=== PATIENT | female | born 1950 ===

== ENCOUNTER 2025-06-11 11:30 | Outpatient (AMB) | payer MEDICARE, SELFPAY | END 2025-06-11 14:35 | disposition home or self-care (01) | LOC: HO.HMGAL 11:30 | PROVIDERS: PCP Internal Medicine Endocrinology, Diabetes & Metabolism; Visit Provider Registered Nurse Emergency | DX: J30.89 Other allergic rhinitis (principal) | CPT/HCPCS: 95117; 95165 ==

== ENCOUNTER 2025-07-01 13:45 | Outpatient (AMB) | payer MEDICARE, SELFPAY ==
--- OUTSIDE RECORDS SUMMARY | 2025-07-01 16:51 | XMS_ITS | Continuity of Care Document ---
Author Organization [facility] [address] [place] [address] Phone [phone] Care Team Providers Care Elementary Principal Name Role Phone Sameer Hart M.D. Care Team Information Re ceiver [phone] Problems Active Problems Provider Date Hyperlipidemia Sameer Hart M.D. Onset: 0 07/19/2022 Essential hypertension Sameer Hart M.D. O nset: 07/19/2022 Obstructive sleep apnea syndrome Sameer garsia M.D. Onset: 07/19/2022 Non-alcoholic fatty liver Bobbi Oro Onset: 07/19/2022 Type 2 diabetes mellitus Sameer Hart M.D. Onset: 07/19/2022 Dependence on continuous pos itive airway pressure ventilation Sameer Hart M.D. Onset: 07/19/2022 Fatigue Sameer Hart M.D. Onset: 0 05/28/2023 Gastroesophageal reflux disease Sameer bryan M.D. Onset: 08/29/2023 Osteoarthritis Sameer Hart M.D. Onset: 0 06/27/2024 Social History Type Date Description Comments Sex Female Sex Unknown Tobacco Use Start: Unknown End: Unknown Quit 50 years ago Smoking Status Reviewed: 05/26/25 Quit 50 year s ago ETOH Use Occasionally consumes alcoho l Allergies and adverse reactions Active Allergies Criticality Reaction Severity Comments Date Jardiance Unable to assess criticality 07/19/2022 Sulfamethoxazole Unable to assess criticality 07/19/2022 Cipro Unable to assess criticality 07/19/2022 Medications Active Medications SIG Qnty Indications Order ing Provider Date [id number] Capsules Take 3 To 5 Capsules By Mouth Every Evening as Needed For Restless Leg Syndrome 150caps Sameer Hart M.D. 01/19/2025 Pravastatin Xwhota15fy Tablets Take 1 Tablet By Mouth AT Supper Sameer Hart M.D. 10/28/2024 Vlcajuvs5vk/0.5ML Solution Auto-Inject 1 injection every week as directed 2ml Sameer Hart M.D. 06/27/2024 Onetouch VerioStrips use 1 strip to check glucose 2 times daily dx: e11.9 200units E11.9 Marley Chung M.D. 12/20/2023 Doxepin DUZ38xd Capsules 1 tablets by mouth at bedtime 180caps Sameer Hart M.D. 04/09/2023 Fblah10yk Tablets 1 by mouth every day 90tabs Sameer Hart M.D. 07/19/2022 Vitamin D (Cholecalciferol)50m cg (1999 Ut) Capsules 1 by mouth every day Sameer Hart M.D. 07/19/2022 Restasis0.05% Emulsion Sameer Hart M.D. 07/19/2022 Meloxicam7.5mg Tablets Take 1 Tablet By Mouth Daily Aníbal Bean, Magnesium Extra Raunkruj055sx Capsules take one daily Unknown Enalapril Minvghz41eu Tablets Take 1 Tablet Daily (May Cause Dizziness) 90tabs Sameer Hart M.D. Labetalol TXB654qm Tablets Take One And One-Half Tablets Twice A Day 180tabs Sameer Hart M.D. Sertraline YGX13pm Tablets Take 1 Tablet Daily 90tabs Sameer Hart M.D. Mnyxpnfjbi32st Capsules DR Take 1 Capsule By Mouth Every Other Day 45caps Sameer Hart M.D. History Medications Mounjaro7.5mg/0.5ML Solution Auto-Inject 1 injection every week as directed kayl Sameer Hart M.D. 11/03/2024 - 12/11/2024 Vqpuxgkz473-80ra Tablets 1 tablet by mouth every day 90tabs Sameer aHrt M.D. 10/28/2024 - 05/26/2025 Pravastatin Cbvczm55sb Tablets Take 1 Tablet By Mouth AT Supper 90tabs Sameer Hart M.D. 08/22/2024 - 10/28/2024 Vital Signs Date Vital Result Comment 05/26/2025 2:28pm BP Systolic 150 mmHg BP Diastolic 70 mmHg Heart Rate 76 /min Height 65 inches 5'5 Weight 204.12 lb BMI (Body Mass Index) 34.0 kg/m2 Results Test Acquired Date Facility Test Result H/L Range Note Lipid Panel 06/04/2025 [facility] Cholesterol, Total 183 mg/dL 100-199 Triglycerides 167 mg/dL High 0-149 HDL Cholesterol 46 mg/dL >39 VLDL Cholesterol Tesfaye 29 mg/dL 5-40 LDL Chol Calc (Nih) 108 mg/dL High 0-99 LDL Calc Comment: TNP Urinalysis, Complete 06/04/2025 [facility] Specific [place] 1.007 1.005-1.03 0 pH 6.0 5.0-7.5 Urine-Color Yellow Yellow Appearance Clear Clear WBC Esterase Trace Abnormal Negative Protein Negative Negative/T race Glucose Negative Negative Ketones Negative Negative Occult Blood Negative Negative Bilirubin Negative Negative Urobilinogen,Se mi-Qn 0.2 mg/dL 0.2-1.0 Nitrite, Urine Negative Negative Microscopic Examination See below: 1 Microscopic Examination TNP WBC 0-5 /hpf 0 - 5 RBC None seen /hpf 0 - 2 Epithelial Cells (non renal) 0-10 /hpf 0 - 10 Epithelial Cells (renal) TNP Casts None seen /lpf None seen Cast Type TNP Crystals TNP Crystal Type TNP Mucus Threads TNP Bacteria None seen None seen/Few Yeast TNP Trichomonas TNP Comment TNP CBC With Differential/Pl atelet 06/04/2025 [facility] WBC 7.8 x10E3/uL 3.4-10.8 RBC 4.30 x10E6/uL 3.77-5.28 Hemoglobin 12.8 g/dL 11.1-15.9 Hematocrit 38.1 % 34.0-46.6 MCV 89 fL 79-97 MCH 29.8 pg 26.6-33.0 MCHC 33.6 g/dL 31.5-35.7 RDW 13.0 % 11.7-15.4 Platelets 374 x10E3/uL 150-450 Neutrophils 58 % Not Estab. Lymphs 32 % Not Estab. Monocytes 7 % Not Estab. Eos 2 % Not Estab. Basos 1 % Not Estab. Immature Cells TNP Neutrophils (Absolute) 4.6 x10E3/uL 1.4-7.0 Lymphs (Absolute) 2.5 x10E3/uL 0.7-3.1 Monocytes(Absol nome) 0.5 x10E3/uL 0.1-0.9 Eos (Absolute) 0.2 x10E3/uL 0.0-0.4 Baso (Absolute) 0.0 x10E3/uL 0.0-0.2 Immature Granulocytes 0 % Not Estab. Immature Grans (Abs) 0.0 x10E3/uL 0.0-0.1 NRBC TNP Hematology Comments: TNP TSH Rfx on Abnormal to Free T4 06/04/2025 [facility] TSH Rfx on Abnormal to Free T4 1.380 uIU/mL 0.450-4.50 0 Albumin/Creatin ine Ratio, Random Urine 06/04/2025 [facility] Creatinine, Urine 27.5 mg/dL Not Estab. Albumin, Urine <3.0 ug/mL Not Es tab. Alb/Creat Ratio <11 mg/gcreat 0-29 2 Comp. Metabolic Panel (14) 06/04/2025 [facility] Glucose 92 mg/dL 70-99 BUN 13 mg/dL 8-27 Creatinine 0.63 mg/dL 0.57-1.00 eGFR 92 mL/min/1.7 3 >59 BUN/Creatinine Ratio 21 12-28 Sodium 135 mmol/L 134-144 Potassium 5.0 mmol/L 3.5-5.2 Chloride 99 mmol/L 96-106 Carbon Dioxide, Total 19 mmol/L Low 20-29 Calcium 9.6 mg/dL 8.7-10.3 Protein, Total 7.0 g/dL 6.0-8.5 Albumin 4.4 g/dL 3.8-4.8 Globulin, Total 2.6 g/dL 1.5-4.5 Bilirubin, Total 0.3 mg/dL 0.0-1.2 Alkaline Phosphatase 70 IU/L 44-121 Ast (Sgot) 19 IU/L 0-40 Alt (SGPT) 18 IU/L 0-32 Hemoglobin A1c 05/26/2025 Inhouse Hemoglobin A1c 5.8% Glucose Fingerstick 05/26/2025 Inhouse Glucose Fingerstick 91 Hemoglobin A1c 10/28/2024 Inhouse Hemoglobin A1c 6.1% Glucose Fingerstick 10/28/2024 Inhouse Glucose Fingerstick 93 Glucose Fingerstick 06/27/2024 Inhouse Glucose Fingerstick 101 Urinalysis, Complete 05/29/2024 [facility] Specific [place] 1.012 1.005-1.03 0 pH 6.5 5.0-7.5 Urine-Color Yellow Yellow Appearance Clear Clear WBC Esterase Negative Negative Protein Negative Negative/T race Glucose Negative Negative Ketones Negative Negative Occult Blood Negative Negative Bilirubin Negative Negative Urobilinogen,Se mi-Qn 0.2 mg/dL 0.2-1.0 Nitrite, Urine Negative Negative Microscopic Examination See Comment: 3 Microscopic Examination See below: 4 WBC None seen /hpf 0 - 5 RBC None seen /hpf 0 - 2 Epithelial Cells (non renal) 0-10 /hpf 0 - 10 Epithelial Cells (renal) TNP Casts None seen /lpf None seen Cast Type TNP Crystals TNP Crystal Type TNP Mucus Threads TNP Bacteria None seen None seen/Few Yeast TNP Trichomonas TNP Comment TNP Albumin/Creatin ine Ratio, Random Urine 05/29/2024 [facility] Creatinine, Urine 35.2 mg/dL Not Estab. Albumin, Urine 3.7 ug/mL Not Est ab. Alb/Creat Ratio 11 mg/gcreat 0-29 5 Magnesium 05/28/2024 [facility] Magnesium 1.8 mg/dL 1.6-2.3 PTH, Intact 05/28/2024 [facility] PTH, Intact 25 pg/mL 15-65 Vitamin D, 25-Hydroxy 05/28/2024 [facility] Vitamin D, 25-Hydroxy 26.0 ng/mL Low 30.0-100.0 6 Hemoglobin A1c 05/28/2024 [facility] Hemoglobin A1c 6.2 % High 4.8-5.6 7 Lipid Panel 05/28/2024 [facility] Cholesterol, Total 195 mg/dL 100-199 Triglycerides 304 mg/dL High 0-149 HDL Cholesterol 42 mg/dL >39 VLDL Cholesterol Tesfaye 52 mg/dL High 5-40 LDL Chol Calc (Nih) 101 mg/dL High 0-99 LDL Calc Comment: TNP Comp. Metabolic Panel (14) 05/28/2024 [facility] Glucose 92 mg/dL 70-99 BUN 14 mg/dL 8-27 Creatinine 0.69 mg/dL 0.57-1.00 eGFR 90 mL/min/1.7 3 >59 BUN/Creatinine Ratio 20 12-28 Sodium 138 mmol/L 134-144 Potassium 4.5 mmol/L 3.5-5.2 Chloride 99 mmol/L 96-106 Carbon Dioxide, Total 20 mmol/L 20-29 Calcium 9.7 mg/dL 8.7-10.3 Protein, Total 7.4 g/dL 6.0-8.5 Albumin 4.6 g/dL 3.8-4.8 Globulin, Total 2.8 g/dL 1.5-4.5 Bilirubin, Total 0.3 mg/dL 0.0-1.2 Alkaline Phosphatase 69 IU/L 44-121 Ast (Sgot) 19 IU/L 0-40 Alt (SGPT) 16 IU/L 0-32 TSH+Free T4 05/28/2024 [facility] TSH 2.080 uIU/mL 0.450-4.50 0 T4,Free(Direct) 1.07 ng/dL 0.82- 1.77 Hemoglobin A1c 03/21/2024 Inhouse Hemoglobin A1c 5.9% Glucose Fingerstick 03/21/2024 Inhouse Glucose Fingerstick 81 Hemoglobin A1c 12/20/2023 Inhouse Hemoglobin A1c 5.8% Glucose Fingerstick 12/20/2023 Inhouse Glucose Fingerstick 114 Hemoglobin A1c 08/29/2023 Inhouse Hemoglobin A1c 6.2% Glucose Fingerstick 08/29/2023 Inhouse Glucose Fingerstick 135 Glucose Fingerstick 05/28/2023 Inhouse Glucose Fingerstick 172 Hemoglobin A1c 05/28/2023 Inhouse Hemoglobin A1c 6.9% Urinalysis Complete 05/01/2023 [facility] Appear/Color LIGHT YELLOW 8 SP. [place] 1.011 (1.002-1.0 30) Urine PH 6.0 (5.0-8.0) Urine Albumin NEGATIVE (Neg) Urine Glucose NEGATIVE (Neg) Urine Ketones NEGATIVE (Neg) Urine Bilirubin NEGATIVE (Neg) Urine Hemoglobin NEGATIVE (Neg) Urine Nitrite NEGATIVE (Neg) Urine Leukocyte 2+ Abnormal (Neg) Urobilinogen NORMAL mg/dL (Norm) Urine WBCs 5 /HPF (0-5) Urine RBCs NONE SEEN /HPF (0-3) Squamous Epith 1 /HPF (0-8) Urinary Microalbumin 05/01/2023 [facility] Micro-Albumin <12.0 mg/L (<20) 9 Malb/Creat Ratio Unable to calcul <SEE NOTE> MG/GM (0-20) 10 Urine Creat For Micro Albumin 44.7 mg/dL Comprehensive Metabolic Panl 04/30/2023 [facility] Glucose 136 mg/dL High (70-99) 11 BUN 19 mg/dL (8-23) Creatinine 0.7 mg/dL (0.5-1.0) Sodium 138 mmol/L (133-145) Potassium 4.6 mmol/L (3.6-5.2) Chloride 100 mmol/L (98-107) Bicarbonate 23 mmol/L (22-29) Anion Gap 15 (4-17) Albumin 4.7 GM/DL (3.4-4.8) Calcium 9.9 mg/dL (8.6-10.5) Bilirubin,Total 0.4 mg/dL (0-1.2 ) Total Protein 7.1 GM/DL (6.2-8.2 ) Ag Ratio 2.0 Ast 21 U/L (0-32) Alk Phos 60 U/L (35-104) Alt 26 U/L (0-33) Estimated GFR Creatinine 91 ML/MIN/1.7 3M2 12 Lipid Panel 04/30/2023 [facility] Cholesterol, Total 209 mg/dL High (<200) Triglyceride 303 mg/dL High (<150) 1 3 HDL Chol 45 mg/dL (>39) LDL Cholesterol, Calculated 103 mg/dL (0-130) Non HDL Cholesterol (Calc) 164 mg/dL High (<160) Urinalysis Complete 04/30/2023 [facility] [id number] Test not perform <SEE NOTE> 14 Hemoglobin A1c 04/30/2023 [facility] Hemoglobin A1c 7.2 % High (4.0-5.6) 15 Complete Abc With Diff 04/30/2023 [facility] WBC 7.2 K/MM3 (4.0-11.0) RBC 4.55 M/MM3 (4.20-5.40 ) HGB 12.9 GM/DL (11.7-15.5 ) HCT 40.4 % (35.7-45.8 ) MCV 88.8 FL (80.0-100. 0) MCH 28.4 pg (27.0-34.0 ) MCHC 31.9 g/dL Low (33.0-37.0 ) PLT 409 K/MM3 (150-460) RDW-SD 43.4 FL (<47.0) MPV 10.5 FL (9.4-12.4) Automated NRBC 0.0 #/100WBC'S Abs. NRBC 0.0 K/MM3 Neut # 4.0 K/MM3 (1.3-7.0) Lymph # 2.2 K/MM3 (0.8-3.1) Zapata# 0.6 K/MM3 (0.4-0.9) Eo # 0.2 K/MM3 (0.0-0.4) Baso # 0.0 K/MM3 (0.0-0.1) Abs. Imm Gran 0.0 K/MM3 Neut 56.3 % (44-76) Lymph 31.2 % (15-43) Monocyte 9.0 % (4.5-10.5) Eo 2.8 % (0-6) Baso 0.6 % (0-2) Imm Gran 0.1 % TSH With Reflex To FT4 04/30/2023 [facility] TSH With Reflex To FT4 1.68 uIU/mL (0.4-4.2) Urinary Microalbumin 04/30/2023 [facility] [id number] Test not perform <SEE NOTE> 16 Hemoglobin A1c 07/19/2022 Inhouse Hemoglobin A1c 6.5% Glucose Fingerstick 07/19/2022 Inhouse Glucose Fingerstick 176 1 Microscopic was kenny cated and was performed. 2 Normal: 0 - 29 Moderately increased: 30 - 300 Severely increased: >300 3 Microscopic follows if indicated. 4 Microscopic was kenny cated and was performed. 5 Normal: 0 - 29 Moderately increased: 30 - 300 Severely increased: >300 6 Vitamin D deficiency has been defined by the [place] of Medicine and an Endocrine Society practice guideline as a level of serum 25-OH vitamin D less than 20 ng/mL (1,2). The Endocrine Society went on to further define vitamin D insufficiency as a level between 21 and 29 ng/mL (2). 1. IOM ([place] of Medicine). 2010. Dietary reference intakes for calcium and D. [place]: The National Academies Press. 2. Salomon MF, Mariela SAUNDERS, Ac DUFFY, et al. Evaluation, treatment, and prevention of vitamin D deficiency: an Endocrine Society clinical practice guideline. JCEM. 2010; 96(7):1911-30. 7 Prediabetes: 5.7 - 6 .4 Diabetes: >6.4 Glycemic control for adults with diabetes: <7.0 8 CLEAR 9 The urine microalbum in test is designed to monitor renal function. When screening for Bence Cabrera proteinuria, urine electrophoresis is recommended. 10 Unable to calculate 11 Fasting 12 Creatinine based est imated glomerular filtration (eGFR) in adults is calculated using the National Kidney Foundation recommended 2020 CKD-EPI equation. Estimates GFR from serum creatinine, age and sex. 13 Fasting 14 Test not performed, pt. unable to void 15 MONITORING: In known diabetic patients, hemoglobin A1c targets should be discussed with health care provider. DIAGNOSTIC USE: The [place] Diabetes Association (ADA) and the World Health Organization (WHO) recommend the use of HbA1c to diagnose diabetes using a threshold of 6.5%. Patients who have an HbA1c between 5.7% and 6.4% are considered at increased risk for developing diabetes in the future. CAUTION: Falsely low HbA1c results may be observed in patients with hemolytic anemia, homozygous forms of abnormal hemoglobin (e.g. SS, CC, SC), , recent blood loss or hemoglobin F greater than 7%. Fructosamine may be used as an alternate test in these cases. REFERENCE: ADA: Standards of Medical Care in Diabetes 2020, The Journal of Clinical and Applied Research and Education Volume 43, Supplement 1 16 Test not performed, pt. unable to void Medical Devices Description No Information Available Encounters Type Date Location Provider Dx Diagnosis Office Visit 05/26/2025 2:15p Main Office Sameer Hart M.D. E11.9 Type 2 diabetes mellitus without complications G47.33 Obstructive sleep ap alicja (adult) (pediatric) I10 Essential (primary) hypertension M19.90 Unspecified osteoart hritis, unspecified site Assessments Date Code Description Provider 05/26/2025 E11.9 Type 2 diabetes mellitus without complications Sameer Hart M.D. 05/26/2025 G47.33 Obstructive sleep apnea synd duarte Sameer Hart M.D. 05/26/2025 I10 Essential (primary) hyperten odette Sameer Hart M.D. 05/26/2025 M19.90 Osteoarthritis Sameer morales M.D. Plan of Treatment Future Appointment(s):* 10/07/2025 1:00 pm - Sameer Hart M.D. at Main Office 05/26/2025 - Sameer Hart M.D.* E11.9 Type 2 diabetes mellitus without complications * G47.33 Obstructive sleep apnea syndrome * I10 Essential (primary) hypertension * M19.90 Osteoarthritis Functional Status Description No Information Available Mental Status Description No Information Available Referrals Description No Information Available
== END 2025-07-01 13:47 | disposition home or self-care (01) ==
LOC: HO.HMGAL 13:45
PROVIDERS: PCP Internal Medicine Endocrinology, Diabetes & Metabolism; Visit Provider Registered Nurse Emergency
DX: J30.89 Other allergic rhinitis (principal)
CPT/HCPCS: 95117; 95165

== ENCOUNTER 2025-07-27 16:16 | Outpatient (AMB) | payer MEDICARE, SELFPAY ==
--- OUTSIDE RECORDS SUMMARY | 2025-07-27 18:27 | XMS_ITS | Continuity of Care Document ---
Author Organization [facility] [address] [place] [address] Phone [phone] Care Team Providers Care Circuit Manager Name Role Phone Sameer Hart M.D. Care Team Information Re ceiver [phone] Problems Active Problems Provider Date Hyperlipidemia Sameer [...] SIG Qnty Indications Order ing Provider Date Fvizvddvmc386vj Capsules Take 3 To 5 Capsules By Mouth Every Evening as Needed For Restless Leg Syndrome 150caps Sameer Hart M.D. 01/19/2025 Pravastatin Bpgsab06zu Tablets Take 1 Tablet By Mouth AT Supper Sameer Hart M.D. 10/28/2024 Krrsgtvr8pp/0.5ML Solution Auto-Inject 1 injection every week as directed 2ml Sameer Hart M.D. 06/27/2024 Onetouch VerioStrips use 1 strip to check glucose 2 times daily dx: e11.9 200units E11.9 Marley Chung M.D. 12/20/2023 Doxepin GPC73gj Capsules 1 tablets by mouth at bedtime 180caps Sameer Hart M.D. 04/09/2023 Bapor99ps Tablets 1 by mouth every day 90tabs Sameer Hart M.D. 07/19/2022 Vitamin D (Cholecalciferol)50m cg (1999 Ut) Capsules 1 by mouth every day Sameer Hart M.D. 07/19/2022 Restasis0.05% Emulsion Sameer Hart M.D. 07/19/2022 Meloxicam7.5mg Tablets Take 1 Tablet By Mouth Daily Aníbal Bean, Magnesium Extra Xlcwapmy412zi Capsules take one daily Unknown Enalapril Tsjqcws05jq Tablets Take 1 Tablet Daily (May Cause Dizziness) 90tabs Sameer Hart M.D. Labetalol AYE038wl Tablets Take One And One-Half Tablets Twice A Day 180tabs Sameer Hart M.D. Sertraline ESD32xh Tablets Take 1 Tablet Daily 90tabs Sameer Hart M.D. Xjyrckbuxf29zn Capsules DR Take 1 Capsule By Mouth Every Other Day 45caps Sameer Hart M.D. History Medications Mounjaro7.5mg/0.5ML Solution Auto-Inject 1 injection every week as directed kayl Sameer Hart M.D. 11/03/2024 - 12/11/2024 Llwyvaul401-27qe Tablets 1 tablet by mouth every day 90tabs Sameer Hart M.D. 10/28/2024 - 05/26/2025 Pravastatin Icgogq94wh Tablets Take 1 Tablet By Mouth AT [...] Comment: TNP Urinalysis, Complete 06/04/2025 [facility] Specific [place] 1.007 1.005-1.03 0 pH 6.0 5.0-7.5 Urine-Color [...] 1.4-7.0 Lymphs (Absolute) 2.5 x10E3/uL 0.7-3.1 Monocytes(Absol markos) 0.5 x10E3/uL 0.1-0.9 Eos (Absolute) 0.2 x10E3/uL [...] Fingerstick 101 Urinalysis, Complete 05/29/2024 [facility] Specific [place] 1.012 1.005-1.03 0 pH 6.5 5.0-7.5 Urine-Color [...] Inhouse Hemoglobin A1c 6.9% Urinalysis Complete 05/01/2023 [facility] Appear/Color LIGHT YELLOW 8 SP. [place] 1.011 (1.002-1.0 30) Urine PH 6.0 (5.0-8.0) Urine Albumin NEGATIVE (Neg) Urine Glucose NEGATIVE (Neg) Urine Ketones NEGATIVE (Neg) Urine Bilirubin NEGATIVE (Neg) Urine Hemoglobin NEGATIVE (Neg) Urine Nitrite NEGATIVE (Neg) Urine Leukocyte 2+ Abnormal (Neg) Urobilinogen NORMAL mg/dL (Norm) Urine WBCs 5 /HPF (0-5) Urine RBCs NONE SEEN /HPF (0-3) Squamous Epith 1 /HPF (0-8) Urinary Microalbumin 05/01/2023 [facility] Micro-Albumin <12.0 mg/L (<20) 9 Malb/Creat Ratio Unable to calcul <SEE NOTE> MG/GM (0-20) 10 Urine Creat For Micro Albumin 44.7 mg/dL Comprehensive Metabolic Panl 04/30/2023 [facility] Glucose 136 mg/dL High [...] 91 ML/MIN/1.7 3M2 12 Lipid Panel 04/30/2023 [facility] Cholesterol, Total 209 mg/dL High (<200) Triglyceride 303 mg/dL High (<150) 1 3 HDL Chol 45 mg/dL (>39) LDL Cholesterol, Calculated 103 mg/dL (0-130) Non HDL Cholesterol (Calc) 164 mg/dL High (<160) Urinalysis Complete 04/30/2023 [facility] [id number] Test not perform <SEE NOTE> 14 Hemoglobin A1c 04/30/2023 [facility] Hemoglobin A1c 7.2 % High (4.0-5.6) 15 Complete Abc With Diff 04/30/2023 [facility] WBC 7.2 K/MM3 (4.0-11.0) [...] K/MM3 (1.3-7.0) Lymph # 2.2 K/MM3 (0.8-3.1) Ponce# 0.6 K/MM3 (0.4-0.9) Eo # 0.2 K/MM3 (0.0-0.4) Baso # 0.0 K/MM3 (0.0-0.1) Abs. Imm Gran 0.0 K/MM3 Neut 56.3 % (44-76) Lymph 31.2 % (15-43) Monocyte 9.0 % (4.5-10.5) Eo 2.8 % (0-6) Baso 0.6 % (0-2) Imm Gran 0.1 % TSH With Reflex To FT4 04/30/2023 [facility] TSH With Reflex To FT4 1.68 uIU/mL (0.4-4.2) Urinary Microalbumin 04/30/2023 [facility] [id number] Test not perform <SEE NOTE> 16 Hemoglobin [...] D deficiency has been defined by the [place] of Medicine and an Endocrine Society practice guideline as a level of serum 25-OH vitamin D less than 20 ng/mL (1,2). The Endocrine Society went on to further define vitamin D insufficiency as a level between 21 and 29 ng/mL (2). 1. IOM ([place] of [employer]). 2010. Dietary reference intakes for [...] with health care provider. DIAGNOSTIC USE: The [place] Diabetes Association (ADA) and the World Health [...] odette Sameer Hart M.D. 05/26/2025 M19.90 Osteoarthritis Smaeer morales M.D. Plan of Treatment Future Appointment(s):* [...]
== END 2025-07-27 16:17 | disposition home or self-care (01) ==
LOC: HO.HMGAL 16:16
PROVIDERS: PCP Internal Medicine Endocrinology, Diabetes & Metabolism; Visit Provider Registered Nurse Emergency
DX: J30.89 Other allergic rhinitis (principal)
CPT/HCPCS: 95117; 95165

== ENCOUNTER 2025-08-26 14:42 | Outpatient (AMB) | payer MEDICARE, SELFPAY ==
--- OUTSIDE RECORDS SUMMARY | 2025-08-26 17:49 | XMS_ITS | Continuity of Care Document ---
Author Organization [facility] [address] [place] [address] Phone [phone] Care Team Providers Care Ultra Sound Technician Name Role Phone Sameer Hart M.D. Care Team Information Re ceiver [phone] Problems Active Problems Provider Date Hyperlipidemia Sameer [...] SIG Qnty Indications Order ing Provider Date Fluticasone Propionate Nasal [place] Allergy Relief 24- Egpu29vvi/Act Suspension 1 spray each nostril daily 3ml Sameer Hart M.D. 08/05/2025 [id number] Capsules Take 3 To 5 Capsules By Mouth Every Evening as Needed For Restless Leg Syndrome 150caps Sameer Hart M.D. 01/19/2025 Pravastatin Bvfxgw82cv Tablets Take 1 Tablet By Mouth AT Supper Sameer Hart M.D. 10/28/2024 Gdpkquuq8ru/0.5ML Solution Auto-Inject 1 injection every week as directed 6ml E11.9 Sameer Hart M.D. 06/27/2024 Onetouch VerioStrips use 1 strip to check glucose 2 times daily dx: e11.9 200units E11.9 Marley Chung M.D. 12/20/2023 Doxepin RCL57bv Capsules 1 tablets by mouth at bedtime 180caps Sameer Hart M.D. 04/09/2023 Restasis0.05% Emulsion Sameer Hart M.D. 07/19/2022 Vitamin D (Cholecalciferol)50m cg (1999 Ut) Capsules 1 by mouth every day Sameer Hart M.D. 07/19/2022 Jtgej28ar Tablets 1 by mouth every day 90tabs Sameer Hart M.D. 07/19/2022 Meloxicam7.5mg Tablets Take 1 Tablet By Mouth Daily Aníbal Bean, Ftxpivzyow94vu Capsules DR Take 1 Capsule By Mouth Every Other Day 45caps Sameer Hart M.D. Sertraline KGC49xn Tablets Take 1 Tablet Daily 90tabs Sameer Hart M.D. Labetalol UID802cr Tablets Take One And One-Half Tablets Twice A Day 180tabs Sameer Hart M.D. Enalapril Jfwhlci37vb Tablets Take 1 Tablet Daily (May Cause Dizziness) 90tabs Sameer Hart M.D. Magnesium Extra Cuqyanlq643vx Capsules take one daily Unknown History Medications Mounjaro7.5mg/0.5ML Solution Auto-Inject 1 injection every week as directed 2ml Sameer Hart M.D. 11/03/2024 - 12/11/2024 Hvlbqxhn723-76ay Tablets 1 tablet by mouth every day 90tabs Sameer Hart M.D. 10/28/2024 - 05/26/2025 Vital Signs Date Vital Result Comment 05/26/2025 [...] Comment: TNP Urinalysis, Complete 06/04/2025 [facility] [place] 1.007 1.005-1.03 0 pH 6.0 5.0-7.5 Urine-Color [...] 1.4-7.0 Lymphs (Absolute) 2.5 x10E3/uL 0.7-3.1 Monocytes(Absol quinault) 0.5 x10E3/uL 0.1-0.9 Eos (Absolute) 0.2 x10E3/uL [...] Fingerstick 101 Urinalysis, Complete 05/29/2024 [facility] [place] 1.012 1.005-1.03 0 pH 6.5 5.0-7.5 Urine-Color [...] Inhouse Hemoglobin A1c 6.9% Urinalysis Complete 05/01/2023 [facility] Appear/Color LIGHT YELLOW 8 SP. [place] 1.011 (1.002-1.0 30) Urine PH 6.0 (5.0-8.0) Urine Albumin NEGATIVE (Neg) Urine Glucose NEGATIVE (Neg) Urine Ketones NEGATIVE (Neg) Urine Bilirubin NEGATIVE (Neg) Urine Hemoglobin NEGATIVE (Neg) Urine Nitrite NEGATIVE (Neg) Urine Leukocyte 2+ Abnormal (Neg) Urobilinogen NORMAL mg/dL (Norm) Urine WBCs 5 /HPF (0-5) Urine RBCs NONE SEEN /HPF (0-3) Squamous Epith 1 /HPF (0-8) Urinary Microalbumin 05/01/2023 [facility] Micro-Albumin <12.0 mg/L (<20) 9 Malb/Creat Ratio Unable to calcul <SEE NOTE> MG/GM (0-20) 10 Urine Creat For Micro Albumin 44.7 mg/dL Comprehensive Metabolic Panl 04/30/2023 [facility] Glucose 136 mg/dL [...] 91 ML/MIN/1.7 3M2 12 Lipid Panel 04/30/2023 [facility] Cholesterol, Total 209 mg/dL High (<200) Triglyceride 303 mg/dL High (<150) 1 3 HDL Chol 45 mg/dL (>39) LDL Cholesterol, Calculated 103 mg/dL (0-130) Non HDL Cholesterol (Calc) 164 mg/dL High (<160) Urinalysis Complete 04/30/2023 [facility] [id number] Test not perform <SEE NOTE> 14 Hemoglobin A1c 04/30/2023 [facility] Hemoglobin A1c 7.2 % High (4.0-5.6) 15 Complete Abc With Diff 04/30/2023 [facility] WBC 7.2 K/MM3 [...] K/MM3 (1.3-7.0) Lymph # 2.2 K/MM3 (0.8-3.1) [place]# 0.6 K/MM3 (0.4-0.9) Eo # 0.2 K/MM3 (0.0-0.4) Baso # 0.0 K/MM3 (0.0-0.1) Abs. Imm Gran 0.0 K/MM3 Neut 56.3 % (44-76) Lymph 31.2 % (15-43) Monocyte 9.0 % (4.5-10.5) Eo 2.8 % (0-6) Baso 0.6 % (0-2) Imm Gran 0.1 % TSH With Reflex To FT4 04/30/2023 [facility] TSH With Reflex To FT4 1.68 uIU/mL (0.4-4.2) Urinary Microalbumin 04/30/2023 [facility] [id number] Test not perform <SEE NOTE> 16 Hemoglobin [...] D deficiency has been defined by the [place] [employer] and an Endocrine Society practice guideline as a level of serum 25-OH vitamin D less than 20 ng/mL (1,2). The Endocrine Society went on to further define vitamin D insufficiency as a level between 21 and 29 ng/mL (2). 1. IOM ([employer]). 2010. Dietary reference intakes for [...] with health care provider. DIAGNOSTIC USE: The [place] Diabetes Association (ADA) and the World Health [...]
== END 2025-08-26 14:42 | disposition home or self-care (01) ==
LOC: HO.HMGAL 14:42
PROVIDERS: PCP Internal Medicine Endocrinology, Diabetes & Metabolism; Visit Provider Registered Nurse Emergency
DX: J30.89 Other allergic rhinitis (principal)
CPT/HCPCS: 95117; 95165

== ENCOUNTER 2025-09-14 15:39 | Outpatient (AMB) | payer MEDICARE, SELFPAY ==
--- OUTSIDE RECORDS SUMMARY | 2025-09-14 20:08 | XMS_ITS | Continuity of Care Document ---
Author Organization [facility] [address] [place] [address] Phone [phone] Care Team Providers Care Auxiliary Plant Operator Name Role Phone Sameer Hart M.D. Care Team Information Re ceiver [phone] Problems Active Problems Provider Date Hyperlipidemia Sameer [...] Order ing Provider Date Fluticasone Propionate Nasal [place] Allergy Relief 24- Qeif91gzv/Act Suspension 1 spray each nostril daily 3ml Sameer Hart M.D. 08/05/2025 Rtdkrtnjhn380rr Capsules Take 3 To 5 Capsules By Mouth Every Evening as Needed For Restless Leg Syndrome 150caps Sameer Hart M.D. 01/19/2025 Pravastatin Iqcetx00zr Tablets Take 1 Tablet By Mouth AT Supper 90tabs Sameer Hart M.D. 10/28/2024 Encwkjvj6of/0.5ML Solution Auto-Inject 1 injection every week as directed 6ml E11.9 Sameer Hart M.D. 06/27/2024 Onetouch VerioStrips use 1 strip to check glucose 2 times daily dx: e11.9 200units E11.9 Marley Chung M.D. 12/20/2023 Doxepin FAD02yg Capsules 1 tablets by mouth at bedtime 180caps Sameer Hart M.D. 04/09/2023 Restasis0.05% Emulsion Sameer Hart M.D. 07/19/2022 Vitamin D (Cholecalciferol)50m cg (1999 Ut) Capsules 1 by mouth every day Sameer Hart M.D. 07/19/2022 Jvcso03ao Tablets 1 by mouth every day 90tabs Sameer Hart M.D. 07/19/2022 Meloxicam7.5mg Tablets Take 1 Tablet By Mouth Daily Aníbal Bean, Crxurdfimq73nj Capsules DR Take 1 Capsule By Mouth Every Other Day 45caps Sameer Hart M.D. Sertraline BJT26ox Tablets Take 1 Tablet Daily 90tabs Sameer Hart M.D. Labetalol PTB171dw Tablets Take One And One-Half Tablets Twice A Day 180tabs Sameer Hart M.D. Enalapril Ukzcqiu39aq Tablets Take 1 Tablet Daily (May Cause Dizziness) 90tabs Sameer Hart M.D. Magnesium Extra Vdbvwcld806xc Capsules take one daily Unknown History Medications Mounjaro7.5mg/0.5ML Solution Auto-Inject 1 injection every week as directed 2ml Sameer Hart M.D. 11/03/2024 - 12/11/2024 Focpeaic148-10nw Tablets 1 tablet by mouth every day [...] Tesfaye 29 mg/dL 5-40 LDL Chol Calc ([facility]) 108 mg/dL High 0-99 LDL Calc Comment: TNP Urinalysis, Complete 06/04/2025 [facility] [place] 1.007 1.005-1.03 0 pH 6.0 5.0-7.5 Urine-Color [...] Fingerstick 101 Urinalysis, Complete 05/29/2024 [facility] [place] 1.012 1.005-1.03 0 pH 6.5 5.0-7.5 Urine-Color [...] Inhouse Hemoglobin A1c 6.9% Urinalysis Complete 05/01/2023 [facility] Appear/Color LIGHT YELLOW 8 SP. [place] 1.011 (1.002-1.0 30) Urine PH 6.0 (5.0-8.0) Urine Albumin NEGATIVE (Neg) Urine Glucose NEGATIVE (Neg) Urine Ketones NEGATIVE (Neg) Urine Bilirubin NEGATIVE (Neg) Urine Hemoglobin NEGATIVE (Neg) Urine Nitrite NEGATIVE (Neg) Urine Leukocyte 2+ Abnormal (Neg) Urobilinogen NORMAL mg/dL (Norm) Urine WBCs 5 /HPF (0-5) Urine RBCs NONE SEEN /HPF (0-3) Squamous Epith 1 /HPF (0-8) Urinary Microalbumin 05/01/2023 [facility] Micro-Albumin <12.0 mg/L (<20) 9 Malb/Creat Ratio Unable to calcul <SEE NOTE> MG/GM (0-20) 10 Urine Creat For Micro Albumin 44.7 mg/dL Comprehensive Metabolic Panl 04/30/2023 [facility] Glucose 136 mg/dL [...] 91 ML/MIN/1.7 3M2 12 Lipid Panel 04/30/2023 [facility] Cholesterol, Total 209 mg/dL High (<200) Triglyceride 303 mg/dL High (<150) 1 3 HDL Chol 45 mg/dL (>39) LDL Cholesterol, Calculated 103 mg/dL (0-130) Non HDL Cholesterol (Calc) 164 mg/dL High (<160) Urinalysis Complete 04/30/2023 [facility] [id number] Test not perform <SEE NOTE> 14 Hemoglobin A1c 04/30/2023 [facility] Hemoglobin A1c 7.2 % High (4.0-5.6) 15 Complete Abc With Diff 04/30/2023 [facility] WBC 7.2 K/MM3 [...] K/MM3 (1.3-7.0) Lymph # 2.2 K/MM3 (0.8-3.1) [place]# 0.6 K/MM3 (0.4-0.9) Eo # 0.2 K/MM3 (0.0-0.4) Baso # 0.0 K/MM3 (0.0-0.1) Abs. Imm Gran 0.0 K/MM3 Neut 56.3 % (44-76) Lymph 31.2 % (15-43) Monocyte 9.0 % (4.5-10.5) Eo 2.8 % (0-6) Baso 0.6 % (0-2) Imm Gran 0.1 % TSH With Reflex To FT4 04/30/2023 [facility] TSH With Reflex To FT4 1.68 uIU/mL (0.4-4.2) Urinary Microalbumin 04/30/2023 [facility] [id number] Test not perform <SEE NOTE> 16 Hemoglobin [...] D deficiency has been defined by the [place] [employer] and an Endocrine Society practice guideline as a level of serum 25-OH vitamin D less than 20 ng/mL (1,2). The Endocrine Society went on to further define vitamin D insufficiency as a level between 21 and 29 ng/mL (2). 1. IOM ([place] [employer]). 2010. Dietary reference intakes for [...] with health care provider. DIAGNOSTIC USE: The [place] Diabetes Association (ADA) and the World Health [...]
== END 2025-09-14 15:39 | disposition home or self-care (01) ==
LOC: HO.HMGAL 15:39
PROVIDERS: PCP Internal Medicine Endocrinology, Diabetes & Metabolism; Visit Provider Registered Nurse Emergency
DX: J30.89 Other allergic rhinitis (principal)
CPT/HCPCS: 95117; 95165

== ENCOUNTER 2025-10-07 14:01 | Outpatient (AMB) | payer MEDICARE, SELFPAY ==
--- OUTSIDE RECORDS SUMMARY | 2025-10-07 18:40 | XMS_ITS | Continuity of Care Document ---
Author Organization [facility] [address] [place] [address] Phone [phone] Care Team Providers Care Scale Technician Name Role Phone Sameer Hart M.D. Care Team Information Re ceiver [phone] Problems Active Problems Provider Date Hyperlipidemia Sameer [...] Order ing Provider Date Fluticasone Propionate Nasal [place] Allergy Relief 24- Keot24dgx/Act Suspension 1 spray each nostril daily 3ml Sameer Hart M.D. 08/05/2025 Pznphslsgy920ay Capsules Take 3 To 5 Capsules By Mouth Every Evening as Needed For Restless Leg Syndrome 150caps Sameer Hart M.D. 01/19/2025 Pravastatin Ucrucs78br Tablets Take 1 Tablet By Mouth AT Supper 90tabs Sameer Hart M.D. 10/28/2024 Nwyslmxn8ym/0.5ML Solution Auto-Inject 1 injection every week as directed 6ml E11.9 Sameer Hart M.D. 06/27/2024 Onetouch VerioStrips use 1 strip to check glucose 2 times daily dx: e11.9 200units E11.9 Marley Chung M.D. 12/20/2023 Doxepin KDP90bn Capsules 1 tablets by mouth at bedtime 180caps Sameer Hart M.D. 04/09/2023 Restasis0.05% Emulsion Sameer Hart M.D. 07/19/2022 Vitamin D (Cholecalciferol)50m cg (1999 Ut) Capsules 1 by mouth every day Sameer Hart M.D. 07/19/2022 Hmsme49ii Tablets 1 by mouth every day 90tabs Sameer Hart M.D. 07/19/2022 Meloxicam7.5mg Tablets Take 1 Tablet By Mouth Daily Aníbal Bean, Kebedknpuf96lj Capsules DR Take 1 Capsule By Mouth Every Other Day 45caps Sameer Hart M.D. Sertraline FSY11lo Tablets Take 1 Tablet Daily 90tabs Sameer Hart M.D. Labetalol AFR978lr Tablets Take One And One-Half Tablets Twice A Day 180tabs Sameer Hart M.D. Enalapril Oeezgpv56bp Tablets Take 1 Tablet Daily (May Cause Dizziness) 90tabs Sameer Hart M.D. Magnesium Extra Lzqsljqw103jb Capsules take one daily Unknown History Medications Mounjaro7.5mg/0.5ML Solution Auto-Inject 1 injection every week as directed 2ml Sameer Hart M.D. 11/03/2024 - 12/11/2024 Uvarlehm543-56hc Tablets 1 tablet by mouth every day [...] Tesfaye 29 mg/dL 5-40 LDL Chol Calc ([facility]) 108 mg/dL High 0-99 LDL Calc Comment: TNP Urinalysis, Complete 06/04/2025 [facility] [place] 1.007 1.005-1.03 0 pH 6.0 5.0-7.5 Urine-Color [...] Fingerstick 101 Urinalysis, Complete 05/29/2024 [facility] [place] 1.012 1.005-1.03 0 pH 6.5 5.0-7.5 Urine-Color [...] Inhouse Hemoglobin A1c 6.9% Urinalysis Complete 05/01/2023 [facility] Appear/Color LIGHT YELLOW 8 SP. [place] 1.011 (1.002-1.0 30) Urine PH 6.0 (5.0-8.0) Urine Albumin NEGATIVE (Neg) Urine Glucose NEGATIVE (Neg) Urine Ketones NEGATIVE (Neg) Urine Bilirubin NEGATIVE (Neg) Urine Hemoglobin NEGATIVE (Neg) Urine Nitrite NEGATIVE (Neg) Urine Leukocyte 2+ Abnormal (Neg) Urobilinogen NORMAL mg/dL (Norm) Urine WBCs 5 /HPF (0-5) Urine RBCs NONE SEEN /HPF (0-3) Squamous Epith 1 /HPF (0-8) Urinary Microalbumin 05/01/2023 [facility] Micro-Albumin <12.0 mg/L (<20) 9 Malb/Creat Ratio Unable to calcul <SEE NOTE> MG/GM (0-20) 10 Urine Creat For Micro Albumin 44.7 mg/dL Comprehensive Metabolic Panl 04/30/2023 [facility] Glucose 136 mg/dL High [...] 91 ML/MIN/1.7 3M2 12 Lipid Panel 04/30/2023 [facility] Cholesterol, Total 209 mg/dL High (<200) Triglyceride 303 mg/dL High (<150) 1 3 HDL Chol 45 mg/dL (>39) LDL Cholesterol, Calculated 103 mg/dL (0-130) Non HDL Cholesterol (Calc) 164 mg/dL High (<160) Urinalysis Complete 04/30/2023 [facility] [id number] Test not perform <SEE NOTE> 14 Hemoglobin A1c 04/30/2023 [facility] Hemoglobin A1c 7.2 % High (4.0-5.6) 15 Complete Abc With Diff 04/30/2023 [facility] WBC 7.2 K/MM3 (4.0-11.0) [...] K/MM3 (1.3-7.0) Lymph # 2.2 K/MM3 (0.8-3.1) [place]# 0.6 K/MM3 (0.4-0.9) Eo # 0.2 K/MM3 (0.0-0.4) Baso # 0.0 K/MM3 (0.0-0.1) Abs. Imm Gran 0.0 K/MM3 Neut 56.3 % (44-76) Lymph 31.2 % (15-43) Monocyte 9.0 % (4.5-10.5) Eo 2.8 % (0-6) Baso 0.6 % (0-2) Imm Gran 0.1 % TSH With Reflex To FT4 04/30/2023 [facility] TSH With Reflex To FT4 1.68 uIU/mL (0.4-4.2) Urinary Microalbumin 04/30/2023 [facility] [id number] Test not perform <SEE NOTE> 16 Hemoglobin [...] D deficiency has been defined by the [place] [employer] and an Endocrine Society practice guideline as a level of serum 25-OH vitamin D less than 20 ng/mL (1,2). The Endocrine Society went on to further define vitamin D insufficiency as a level between 21 and 29 ng/mL (2). 1. IOM ([place] [employer]). 2010. Dietary reference intakes for [...] with health care provider. DIAGNOSTIC USE: The [place] Diabetes [employer] (ADA) and the World Health [...] morales M.D. Plan of Treatment Future Appointment(s):* 12/17/2025 10:15 am - Sameer Hart M.D. at Main Office 05/26/2025 - Sameer Hart M.D.* E11.9 Type 2 diabetes mellitus without complications * G47.33 Obstructive sleep apnea syndrome * I10 Essential (primary) hypertension * M19.90 Osteoarthritis Functional Status Description No Information Available Mental Status Description No Information Available Referrals Description No Information Available
== END 2025-10-07 14:02 | disposition home or self-care (01) ==
LOC: HO.HMGAL 14:01
PROVIDERS: PCP Internal Medicine Endocrinology, Diabetes & Metabolism; Visit Provider Registered Nurse Emergency
DX: J30.89 Other allergic rhinitis (principal)
CPT/HCPCS: 95117; 95165